=== PATIENT | male | born 1940 | race Caucasian/White ===

== ENCOUNTER 2016-12-08 17:15 | Emergency (ER) | payer OTHER, BC ==
[~2016-12-08] VITALS: Ht 180.3 cm; Wt 81.7 kg
--- NOTE | ~2016-12-08 | EKG ---
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
[~2016-12-08 17:15] MED LIST: AGGRENOX 25 MG1 EACH PO; ARICEPT10 M1 PO; ASPIRIN81 M2 PO; B-121000 MCG PO; B12INJ PO; BACLOFEN20 MG; BACTROBAN NASAL1 GM NS; CLARITIN10 MG PO; COLACE100 MG; COLACE100 MG PO; DESYREL100 MG; DESYREL300 MG PO; DIPYRIDAMOLE PO; EXCEDRIN CAPLE1 EACH PO; FLEXERIL PO; FLONASE 0.05%50 MCG NASAL; FLONASE 0.05%50 MCG NS; GEMFIBROZIL 60600 MG PO; LEVAQUIN 500 M500 M2 PO; LEVOTHYROXIN0.025 MG PO; MECLIZINE 25 MG25 M1; MIRALAX255 GM PO; MOBIC15 MG PO; MORPHINE; MOTION RELIEF25 MG PO; MS CONTIN15 MG; MS CONTIN60 MG PO; MUCINEX600 MG PO; NORCO 5-325 TA1 EACH PO; OMEPRAZOLE; OMEPRAZOLE20 M2 PO; OSELB75 PO; OXYCODONE HCL 55 MG PO; PERCOCET; PERCOCET 5-3251 EACH; PHENERGAN 25 MG25 M1 PO; PREDNISONE 20 M20 MG PO; REMERON30 MG PO; SENNA PO; SIMVASTATIN40 MG PO; SIMVASTATIN80 MG PO; TAMSULOSIN HCL0.4 MG PO; TRAMADOL 50 MG50 MG PO; TRAZODONE PO; ULTRAM 50MG TAB50 MG PO; VENLAFAXINE HC225 MG PO; XARELTO10 MG; ZOCOR; ZOFRAN4 MG PO
[2016-12-08] MEDS ORDERED: FLONASE 0.05%50 MCG NASAL (17:57)
[2016-12-08] MEDS ORDERED: CETIRIZINE HCL5 MG PO (17:57)
[2016-12-08 18:05] LABS: ABSOLUTE NEUTROPHILS 2.6 thou/uL (1.4-8.2); BASOPHILS 0.7 % (0.0-2.0); EOSINOPHILS 0.6 % (0.0-3.0); HEMATOCRIT 42.3 % (42.0-52.0); HEMOGLOBIN 14.8 gm/dL (14.0-18.0); MCH 33.2 pg (26.0-34.0); MCHC 34.9 g/dL (28.0-37.0); MCV 95.2 fL (80.0-100.0); PLATELET COUNT 113 thou/uL (150-400); POLYS 65.7 % (36.0-66.0); RBC 4.44 mil/uL (4.50-6.00); RDW 12.5 % (10.5-14.5)
[2016-12-08 18:07] LABS: MANUAL DIFF NO
[2016-12-08 18:10] LABS: CALCIUM 9.2 mg/dL (8.5-10.1); CREATININE 1.1 mg/dL (0.7-1.3); POTASSIUM 3.7 mmol/L (3.5-5.1)
[2016-12-08 18:15] LABS: ALBUMIN 3.7 g/dL (3.4-5.0); TOTAL BILIRUBIN 0.4 mg/dL (<0.1-1.0); TOTAL PROTEIN 7.2 g/dL (6.4-8.2)
[2016-12-08 19:12] LABS: URINE BILIRUBIN NEGATIVE (Negative); URINE BLOOD NEGATIVE (Negative); URINE COLOR YELLOW; URINE GLUCOSE-RANDOM* NEGATIVE (Negative); URINE KETONES NEGATIVE (Negative); URINE LEUKOCYTES-REFLEX NEGATIVE (Negative); URINE PROTEIN (DIPSTICK) NEGATIVE (Negative)
[2016-12-08] MEDS ORDERED: ZANTAC 150MG T150 MG PO (19:32)
[2016-12-08] MEDS ORDERED: REGLAN 10 MG TA10 MG PO (19:35)
== END 2016-12-08 19:51 | disposition home or self-care (01) ==
LOC: ER 17:15
PROVIDERS: Physician Assistant
DX: S00.93XA Contusion of unspecified part of head, initial encounter (principal); K21.9 Gastro-esophageal reflux disease without esophagitis; I25.2 Old myocardial infarction; J32.9 Chronic sinusitis, unspecified; M19.90 Unspecified osteoarthritis, unspecified site; F32.9 Major depressive disorder, single episode, unspecified; F41.9 Anxiety disorder, unspecified; G47.30 Sleep apnea, unspecified; N40.0 Benign prostatic hyperplasia without lower urinary tract symptoms; M79.7 Fibromyalgia; G25.81 Restless legs syndrome; E03.9 Hypothyroidism, unspecified; J44.9 Chronic obstructive pulmonary disease, unspecified; K64.9 Unspecified hemorrhoids; E78.00 Pure hypercholesterolemia, unspecified; F03.90 Unspecified dementia, unspecified severity, without behavioral disturbance, psychotic disturbance, mood disturbance, and anxiety; Z90.49 Acquired absence of other specified parts of digestive tract; Z86.73 Personal history of transient ischemic attack (TIA), and cerebral infarction without residual deficits; W18.30XA Fall on same level, unspecified, initial encounter; Y93.89 Activity, other specified; Y92.89 Other specified places as the place of occurrence of the external cause; Y99.8 Other external cause status

== ENCOUNTER → 2017-01-02 | Outpatient (CLI) | payer OTHER, BC ==
[~2017-01-02] MED LIST changes: +CETIRIZINE HCL5 MG PO; +REGLAN 10 MG TA10 MG PO; +ZANTAC 150MG T150 MG PO
--- NOTE | ~2017-01-02 | EEG ---
[facility] [place] [address] ELECTROENCEPHALOGRAM Name: MARLENE RICHARD Room #: REG [facility] M..#: [id number] Admission: 01/02/17 Attend Phys: Jose Francisco Mcintosh MD Discharge: Date of : 40 Report #: [id number] THIS REPORT FOR: //name// CC: Jose Francisco Mcintosh DATE OF SERVICE: 01/02/2017 This patient is being evaluated for headaches, syncope and dizziness. This patient's EEG was done by placing the electrodes by standard 10-20 system of electrode placement. Both referential and sequential montages were used for recording. Background activity in this patient's EEG is about 9 Hz and 30 microvolts. It is intermixed with theta range slowing to some extent. Large portion of this EEG was obtained when the patient was asleep. That is associated with bilateral slowing and sleep spindle and vertex sharp waves. Photic stimulation is unremarkable. Throughout the record, no active epileptiform activity was noticed. IMPRESSION: This patient's EEG is intermixed with theta range slowing on both sides. That is a nonspecific abnormality, which can occur with encephalopathy, effect of psychotropic medication, dementia, etc. Clinical correlation is recommended. By: 0725 0754 Mart Santizo MD /nt
== END ==
LOC: NEURO 07:47
DX: S06.0X9A Concussion with loss of consciousness of unspecified duration, initial encounter (principal); M47.894 Other spondylosis, thoracic region; R55 Syncope and collapse; W19.XXXA Unspecified fall, initial encounter; Y93.89 Activity, other specified; Y92.89 Other specified places as the place of occurrence of the external cause; Y99.8 Other external cause status

== ENCOUNTER → 2017-01-22 | Outpatient (CLI) | payer OTHER, BC ==
[~2017-01-22] VITALS: Ht 180.3 cm; Wt 84.4 kg
[~2017-01-22] MED LIST changes: -MS CONTIN15 MG; +MS CONTIN15 MG PO; -PERCOCET; +PERCOCET PO
--- NOTE | ~2017-01-22 | S ---
[facility] [place] [address] SURGICAL PATH RPT PROCEDURE Name: PAYAM RICHARD Room #: REG CLCharla SantiagoRemediosIta.#: [id number] Admission: 01/22/17 Date of : 40 Discharge: Report #: [id number] Path Case #: [id number] PATHOLOGY REPORT COLLECTION DATE: 01/22/2017 RECEIVED DATE: 01/22/2017 SUBMITTING PHYS: Dr. Ty Julio OTHER PHYS: SPECIMEN(S) RECEIVED: A.Duodenal bx B.Gastric bx * * * * * * * * * * * * FINAL DIAGNOSIS: A. Small bowel, duodenum, biopsy: - Unremarkable duodenal mucosa. B. Stomach, biopsy: - Reactive gastropathy. - No acute inflammation present. - An H. pylori immunostain is negative (Block B1; appropriately reactive control). PATHOLOGIST: Tavo Marie M.D. REPORT ELECTRONICALLY SIGNED BY: Tavo Marie M.D. DATE/TIME: 01/23/2017 11:10 * * * * * * * * * * * * GROSS PATHOLOGY: A. Received in formalin labeled "aPyam Landaverdesor, duodenal BX," are 3 segments of esquivel soft tissue measuring 1.2 x 0.4 x 0.3 cm in aggregate dimensions and ranging from 0.4 to 0.4 cm in maximum dimension. The specimen is submitted entirely in cassette A1. B. Received in formalin labeled "Payam Halsor, gastric BX," are 4 segments of esquivel soft tissue measuring 2.0 x 0.2 x 0.3 cm in aggregate dimensions and ranging from 0.3 to 0.7 cm in maximum dimension. The specimen is submitted entirely in cassette B1. (TSD; 01/22/2017) CLINICAL HISTORY: Abdominal pain INITIAL CPT CODE(S): A; 34032 B; 68889, [address] [facility] [address] [place] [address] SURGICAL PATH RPT PROCEDURE Name: PAYAM RICHARD Room #: REG CLI RemediosRemedios#: [id number] Admission: 01/22/17 Date of : 40 Discharge: Report #: [id number] Path Case #: [id number] Professional services performed by [facility] at [address] , [place] [address] Technical services performed by [facility] at [address] [place] [address], [place] [address]. [facility] [address] [place] [address] PHONE: [phone] DIRECTOR: Jesús Ruelas M.D. * * * END OF REPORT * * *
--- NOTE | ~2017-01-22 | P ---
[facility] [place] [address] PROCEDURE REPORT Name: MARLENE RICHARD Room #: REG [facility] Ayesha#: [id number] Admission: 01/22/17 Attend Phys: Ty Mclain Discharge: Date of : 40 Report #: [id number] THIS REPORT FOR: //name// CC: Ty Mcintosh DATE OF SERVICE: 01/22/2017 PROCEDURE PERFORMED: Upper endoscopy with biopsies and esophageal dilation. HISTORY OF PRESENT ILLNESS: The patient is a 76-year-old male who complains of abdominal pain, it is primarily periumbilical and midepigastric. He does take aspirin and Mobic on a regular basis as well as omeprazole. He has had weight loss. He described the pain is intermittent in nature. He reports his bowel movements have been normal. He does report some dysphagia. He had an upper endoscopy by myself in 2011, which was essentially negative. Plan is for EGD. DESCRIPTION OF PROCEDURE: The risks and benefits of the procedure were explained to the patient, those risks including but not limited to bleeding, perforation, the risk of sedation. He understood these risks and gave informed consent. Sedation was given using propofol per anesthesia. Next, using a standard VayaFelizn upper endoscope, the scope was placed in the patient's mouth and advanced under direct vision through the esophagus, stomach and into the second portion of the duodenum. The esophagus was normal throughout. The GE junction was normal. No evidence of stricture or esophagitis. There was a diffuse uvvg-ku-sfizaovu gastritis noted throughout the stomach. No evidence of ulcers, no bleeding. Biopsies were obtained to rule out H. pylori. The pylorus was normal and patent. The duodenal bulb, first and second portion were all normal. Biopsies were obtained to rule out the possibility of celiac sprue. Scope was then brought back up into the patient's stomach and a Savary guidewire was inserted through the scope as the scope was then withdrawn. Next, a 51-Ukrainian Savary dilation of the esophagus was performed without difficulty. The wire and dilator were removed. The scope was reintroduced into the patient's stomach. There was no evidence of mucosal tear after dilation. Scope was then withdrawn and the procedure terminated. The patient tolerated the procedure well. IMPRESSION: 1. Gastritis. 2. Otherwise, normal upper endoscopy. RECOMMENDATIONS: 1. Await biopsy results. 2. Continue PPI therapy. 3. Observe the patient status post dilation. [address] [address] PROCEDURE REPORT Name: MARLENE RICHARD [facility] #: [facility] [id number] Admission: 01/22/17 Attend Phys: Ty Mclain Discharge: Date of : 40 Report #: [id number] 4. If biopsies are negative, would consider CT scan of the abdomen and pelvis. Thank you for allowing me to participate in his care. <ELECTRONICALLY SIGNED> By: Ty Julio MD 01/23/17 0906 0917 1009 Ty Julio MD /nt
== END | disposition home or self-care (01) ==
LOC: GI 07:10
DX: K31.9 Disease of stomach and duodenum, unspecified (principal); R13.19 Other dysphagia; K21.9 Gastro-esophageal reflux disease without esophagitis; I25.2 Old myocardial infarction; M79.7 Fibromyalgia; J44.9 Chronic obstructive pulmonary disease, unspecified; J32.8 Other chronic sinusitis; G47.33 Obstructive sleep apnea (adult) (pediatric); E03.9 Hypothyroidism, unspecified; N40.0 Benign prostatic hyperplasia without lower urinary tract symptoms; E78.5 Hyperlipidemia, unspecified; M19.90 Unspecified osteoarthritis, unspecified site; F32.89 Other specified depressive episodes; F41.8 Other specified anxiety disorders; Z79.82 Long term (current) use of aspirin; Z87.891 Personal history of nicotine dependence; Z86.73 Personal history of transient ischemic attack (TIA), and cerebral infarction without residual deficits; Z96.652 Presence of left artificial knee joint; Z87.19 Personal history of other diseases of the digestive system; Z79.899 Other long term (current) drug therapy; Z90.49 Acquired absence of other specified parts of digestive tract; Z98.890 Other specified postprocedural states
CPT/HCPCS: 62110; 62900

== ENCOUNTER → 2017-02-21 | Outpatient (CLI) | payer OTHER, BC | LOC: CAT 07:33 | PROVIDERS: Specialist | DX: N32.89 Other specified disorders of bladder (principal); R10.33 Periumbilical pain; R13.10 Dysphagia, unspecified ==

== ENCOUNTER 2018-07-10 10:19 | Inpatient (IN) | payer OTHER, BC ==
[~2018-07-10] VITALS: Ht 180.3 cm; Wt 86.2 kg
[2018-07-10] VITALS (9 sets, daily range): BP systolic 129–153; BP diastolic 54–82
[2018-07-10 10:54] LABS: ABSOLUTE NEUTROPHILS 1.3 thou/uL (1.4-8.2); BASOPHILS 0.9 % (0.0-2.0); EOSINOPHILS 5.7 % (0.0-3.0); HEMATOCRIT 37.1 % (42.0-52.0); HEMOGLOBIN 12.7 gm/dL (14.0-18.0); LYMPHOCYTES 40.9 % (24.0-44.0); MCH 32.6 pg (26.0-34.0); MCHC 34.2 g/dL (28.0-37.0); MCV 95.3 fL (80.0-100.0); MONOCYTES 8.7 % (1.0-8.0); POLYS 43.8 % (36.0-66.0); RBC 3.89 mil/uL (4.50-6.00); RDW 13.1 % (10.5-14.5); WBC 3.1 thou/uL (4.0-11.0)
[2018-07-10 11:04] LABS: ANION GAP 7 mmol/L (7-16); BUN 17 mg/dL (7-18); CALCIUM 8.5 mg/dL (8.5-10.1); CHLORIDE 104 mmol/L (98-107); CO2 30 mmol/L (21-32); CREATININE 1.1 mg/dL (0.7-1.3); GLUCOSE 107 mg/dL (74-106); POTASSIUM 3.5 mmol/L (3.5-5.1); SODIUM 141 mmol/L (136-145)
[2018-07-10 11:12] LABS: ALBUMIN 3.5 g/dL (3.4-5.0); SALICYLATE < 2.8 mg/dL (2.8-20.0); SGOT 12 U/L (15-37); SGPT 24 U/L (30-65); TOTAL BILIRUBIN 0.4 mg/dL (<0.1-1.0); TOTAL PROTEIN 6.5 g/dL (6.4-8.2); TROPONIN-I <0.06 ng/mL (<0.06)
[2018-07-10 11:34] LABS: PLATELET COUNT 80 thou/uL (150-400); PLATELET ESTIMATE SLIGHTLY DECREASED
[2018-07-10 15:07] LABS: URINE BILIRUBIN NEGATIVE (Negative); URINE BLOOD NEGATIVE (Negative); URINE CLARITY CLEAR; URINE COLOR YELLOW; URINE GLUCOSE-RANDOM* NEGATIVE (Negative); URINE KETONES NEGATIVE (Negative); URINE LEUKOCYTES-REFLEX NEGATIVE (Negative); URINE NITRITE-REFLEX NEGATIVE (Negative); URINE PROTEIN (DIPSTICK) NEGATIVE (Negative); URINE UROBILINOGEN 0.2 E.U./dl (0.2-1.0)
[2018-07-10] MEDS ORDERED: POTASSIUM20 PO (15:47)
[2018-07-10] MEDS ORDERED: CYMBALTA60 MG PO (15:47)
[2018-07-10] MEDS ORDERED: TOPAMAX50 MG PO (15:47)
[2018-07-10] MEDS ORDERED: PROTONIX40 M1 PO (15:48)
[2018-07-10] MEDS ORDERED: LIPITOR 20 MG T20 M1 PO (15:48)
[2018-07-10] MEDS ORDERED: ABILIFY 5 MG TAB5 MG PO (15:49)
[2018-07-10] MEDS ORDERED: ONDANSETRON HCL4 M2 PO (16:02)
[2018-07-10 16:04] LABS: TSH 2.862 uIU/mL (0.358-3.740)
[2018-07-10] MEDS ORDERED: LASIX 20 MG TAB20 MG PO (16:04)
--- NOTE | 2018-07-10 16:34 | NUR ---
ADMITTED FROM ER PER CART TO ICU #239 WITH DIAGNOSIS: UNINTENTIONAL OPIOID OVERDOSE, RESP FAILURE WITH HYPOXIA. ALERT, ORIENTED X3, TALKING, WATCHING TV, MOVES ALL EXTREMITIES TO COMMAND, CALM, COOPERATIVE, SR, RESP EVEN AND UNLABORED, 2L/NC, NARCAN INFUSING 0.13 MG/HR. PT UNACCOMPANIED BY FAMILY ON ARRIVAL.
--- NOTE | 2018-07-10 17:19 | EKG ---
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1940 Requested By: Mala Waterman Order Number: [id number] MD: Dionte Suazo Measurements Intervals Gustine Rate: 58 P: 46 HI: 176 QRS: -67 QRSD: 161 T: 4 QT: 472 QTc: 464 Interpretive Statements Sinus bradycardia RBBB and LAFB Compared to ECG 12/08/2016 17:34:44 No significant changes Electronically Signed On 07-10-2018 17:18:55 CDT by Dionte Suazo [email or web address] ��������������������������������������������� <ELECTRONICALLY SIGNED> ���������������������������������������� By: Dionte Suazo MD, [facility] ��������������������������������������������� 07/10/18 1718 1038 1038 Dionte Suazo MD, FACC /EPI
[2018-07-11] VITALS (14 sets, daily range): BP systolic 122–142; BP diastolic 63–105
[2018-07-11 05:17] LABS: HEMATOCRIT 40.2 % (42.0-52.0); HEMOGLOBIN 13.8 gm/dL (14.0-18.0); MCH 32.5 pg (26.0-34.0); MCHC 34.2 g/dL (28.0-37.0); MCV 94.9 fL (80.0-100.0); RBC 4.23 mil/uL (4.50-6.00); RDW 13.1 % (10.5-14.5); WBC 5.8 thou/uL (4.0-11.0)
[2018-07-11 05:24] LABS: CALCIUM 8.6 mg/dL (8.5-10.1); MAGNESIUM 2.1 mg/dL (1.8-2.4); POTASSIUM 3.4 mmol/L (3.5-5.1)
--- NOTE | 2018-07-11 11:24 | NUR ---
PT TO MRI /C TRANSPORT AND TICKET TO RIDE
[2018-07-11] MEDS ORDERED: ACETAMINOPHEN325 M1 PO (14:56)
[2018-07-11] MEDS ORDERED: ARICEPT10 M1 PO (14:56)
[2018-07-11] MEDS ORDERED: LASIX 20 MG TAB20 MG PO (14:56)
--- NOTE | 2018-07-11 16:16 | NUR ---
Met with patient, , and dtr at bedside. Dtr reports parents and her recently have moved together. [employer] independent with adls. Patient to dc home today with HH orders. Dtr reports have used [facility] in past. Requested [facility] review. She reports new address given in ER which is not on face sheet. [place] [address] [facility] [place] [address] Mcintosh. casemgt following.
--- NOTE | 2018-07-11 16:39 | NUR ---
PT DC'D TO CARE OF DAUGHTER AFTER DISCHARGE INSTRUCTIONS GIVEN AND DAUGHTER VERBALIZED UNDERSTANDING - LEFT IN WC ESCORTED BY [facility] TRANSPORT
--- NOTE | 2018-07-15 09:27 | NUR ---
[facility] ACCEPTING OF PATIENT FOR HH CARE.
== END 2018-07-11 16:36 | disposition home health service (06) | DRG 917 ==
LOC: ER 10:19 → ICU 12:37 → EROBS 12:37 → ICU 16:13
PROVIDERS: Nurse Practitioner Family; ADMIT Internal Medicine
DX: T40.2X1A Poisoning by other opioids, accidental (unintentional), initial encounter (principal); J96.01 Acute respiratory failure with hypoxia; G92 Toxic encephalopathy; M19.90 Unspecified osteoarthritis, unspecified site; F32.9 Major depressive disorder, single episode, unspecified; F41.9 Anxiety disorder, unspecified; N40.0 Benign prostatic hyperplasia without lower urinary tract symptoms; G25.81 Restless legs syndrome; E03.9 Hypothyroidism, unspecified; E78.00 Pure hypercholesterolemia, unspecified; F03.90 Unspecified dementia, unspecified severity, without behavioral disturbance, psychotic disturbance, mood disturbance, and anxiety; Z96.652 Presence of left artificial knee joint; K21.9 Gastro-esophageal reflux disease without esophagitis; R41.0 Disorientation, unspecified; G89.4 Chronic pain syndrome; M79.7 Fibromyalgia; I25.10 Atherosclerotic heart disease of native coronary artery without angina pectoris; E78.5 Hyperlipidemia, unspecified; Y92.89 Other specified places as the place of occurrence of the external cause; I25.2 Old myocardial infarction; Z90.49 Acquired absence of other specified parts of digestive tract; Z87.01 Personal history of pneumonia (recurrent); Z87.891 Personal history of nicotine dependence
CPT/HCPCS: 10078

== ENCOUNTER → 2019-02-10 | Outpatient (CLI) | payer OTHER, BC ==
[~2019-02-10] VITALS: Ht 180.3 cm; Wt 86.2 kg
[~2019-02-10] MED LIST changes: +ABILIFY 5 MG TAB5 MG PO; +ACETAMINOPHEN325 M1 PO; +ACETAMINOPHEN650 M5 PO; +CYMBALTA60 MG PO; +FUROSEMIDE 20 M20 MG PO; +LASIX 20 MG TAB20 MG PO; -LEVOTHYROXIN0.025 MG PO; +LIPITOR 20 MG T20 M1 PO; +MORPHINE SULFAT15 MG PO; +NORFLEX100 MG PO; +ONDANSETRON HCL4 M2 PO; +PERCOCET 10-321 EAC1 PO; +POTASSIUM20 PO; +PROTONIX40 M1 PO; +SYNTHROID25 MC1 PO; +TOPAMAX50 MG PO
[2019-02-10 10:22] LABS: HEMATOCRIT 40.7 % (42.0-52.0); HEMOGLOBIN 13.6 gm/dL (14.0-18.0); MCHC 33.4 g/dL (28.0-37.0); MCV 98.7 fL (80.0-100.0); RBC 4.12 mil/uL (4.50-6.00); RDW 13.3 % (10.5-14.5); WBC 4.1 thou/uL (4.0-11.0)
[2019-02-10 10:24] LABS: URINE BILIRUBIN NEGATIVE (Negative); URINE BLOOD NEGATIVE (Negative); URINE CLARITY CLEAR; URINE COLOR YELLOW; URINE GLUCOSE-RANDOM* NEGATIVE (Negative); URINE KETONES NEGATIVE (Negative); URINE LEUKOCYTES-REFLEX NEGATIVE (Negative); URINE NITRITE-REFLEX NEGATIVE (Negative); URINE PROTEIN (DIPSTICK) NEGATIVE (Negative); URINE SPECIFIC GRAVITY <= 1.005 (1.005-1.035); URINE UROBILINOGEN 0.2 E.U./dl (0.2-1.0)
[2019-02-10 10:30] LABS: PROTIME 10.6 Seconds (9.3-11.4)
[2019-02-10 10:36] LABS: CALCIUM 9.4 mg/dL (8.5-10.1); POTASSIUM 4.2 mmol/L (3.5-5.1)
== END ==
LOC: PAC 08:52 → TBA 02-21 08:52 → PRE 02-21 08:59 → EDSTATUS 03-12 10:06
PROVIDERS: Orthopaedic Surgery Sports Medicine
DX: S43.421A Sprain of right rotator cuff capsule, initial encounter (principal); M75.21 Bicipital tendinitis, right shoulder; M25.511 Pain in right shoulder; M19.011 Primary osteoarthritis, right shoulder; M75.51 Bursitis of right shoulder; X58.XXXA Exposure to other specified factors, initial encounter; Y93.89 Activity, other specified; Y92.89 Other specified places as the place of occurrence of the external cause; Y99.8 Other external cause status

== ENCOUNTER 2019-05-21 06:24 | Inpatient (IN) | payer OTHER, BC ==
[2019-05-12 08:52] LABS: HEMATOCRIT 43.2 % (42.0-52.0); HEMOGLOBIN 14.6 gm/dL (14.0-18.0); MCH 32.8 pg (26.0-34.0); MCHC 33.7 g/dL (28.0-37.0); MCV 97.2 fL (80.0-100.0); RBC 4.44 mil/uL (4.50-6.00); WBC 5.2 thou/uL (4.0-11.0)
[2019-05-12 08:57] LABS: URINE BILIRUBIN NEGATIVE (Negative); URINE BLOOD NEGATIVE (Negative); URINE CLARITY CLEAR; URINE COLOR YELLOW; URINE GLUCOSE-RANDOM* NEGATIVE (Negative); URINE KETONES NEGATIVE (Negative); URINE LEUKOCYTES-REFLEX NEGATIVE (Negative); URINE NITRITE-REFLEX NEGATIVE (Negative); URINE PROTEIN (DIPSTICK) NEGATIVE (Negative); URINE UROBILINOGEN 0.2 E.U./dl (0.2-1.0)
[2019-05-12 09:03] LABS: CALCIUM 9.2 mg/dL (8.5-10.1); CREATININE 1.2 mg/dL (0.7-1.3); POTASSIUM 4.1 mmol/L (3.5-5.1); PROTIME 10.4 Seconds (9.3-11.4)
[~2019-05-21] VITALS: Ht 180.3 cm; Wt 83.9 kg
--- NOTE | ~2019-05-21 | O ---
[facility] [place] [address] OPERATIVE REPORT Name: MARLENE RICHARD Florencia Room #: 150-1 ADM IN M.R.#: [id number] Admission: 05/21/19 Attend Phys: Darinel Vargas Discharge: Date of : 40 Report #: [id number] THIS REPORT FOR: //name// CC: Jose Francisco Eldridge DATE OF SERVICE: 05/21/2019 PREOPERATIVE DIAGNOSES: Pain, partial thickness rotator cuff tear, severe glenohumeral joint osteoarthritis, superior labral tear, biceps tendinitis. POSTOPERATIVE DIAGNOSES: Right shoulder pain, advanced glenohumeral joint osteoarthritis, large rotator cuff tear, long head biceps tendon tear/tendinopathy, complex labral tear. PROCEDURE PERFORMED: Right shoulder reverse total shoulder arthroplasty with open biceps tenodesis. SURGEON: Darinel Eldridge MD OR ASSISTANT: Halima Quiroz PA-C. ANESTHESIA: General with an ultrasound-guided preoperative interscalene block. FLUIDS: 750 mL crystalloid. ESTIMATED BLOOD LOSS: Approximately 75 mL. IMPLANTS UTILIZED: DePuy Delta Xtend size 14 stem with a size 1, GONZALEZ coated epiphysis with a +6 polyethylene cup and a 42 mm +2 centered glenoid with standard Metaglene. DESCRIPTION OF PROCEDURE: After proper identification of the patient and operative site in preoperative holding area, the operative site was signed by myself. Prophylactic antibiotics given. The patient elected to receive an ultrasound-guided block after reviewing the risks, benefits, alternatives and potential complications with Anesthesia. After a satisfactory block, the patient was brought back to the operative suite after induction of satisfactory general anesthesia, the right shoulder was examined. It was stable throughout an arc of motion comparable to the preoperative assessment. The patient was carefully positioned in the beach chair with head of bed elevated approximately 40 degrees. Right shoulder was sterilely prepped and draped in the usual manner. Final skin draping was with Ioban. A PickPark limb positioning system was utilized throughout the entire procedure to aid in patient limb positioning, visualization and retraction of soft tissues, instrument passage, closure and sling and dressing application. Anterior deltopectoral approach was [address] [address] OPERATIVE REPORT Name: MARLENE RICHARD Room #: 150-1 ADM IN M.R.#: [id number] Admission: 05/21/19 Attend Phys: Darinel Vargas Discharge: Date of : 40 Report #: [id number] planned. Skin was incised sharply. Full thickness skin flaps were developed. Cephalic vein was identified and retracted laterally. Subdeltoid adhesions were carefully released bluntly. A tenosynovitis about the biceps tendon was noted. Partial thickness tearing and large spurs were noted about the bicipital groove. Biceps was tenodesed to the undersurface of the pectoralis major using #2 FiberWire. Upper border tear of the subscapularis was noted. From a more inferior portion was intact and this was released off the lesser tuberosity with a tendon grasping stitch placed on. The subscapularis was then released. There was evidence of rotator cuff tear involving the supraspinatus extending back towards the infraspinatus where the infraspinatus more posteriorly as well as teres minor was otherwise intact. Advanced degenerative changes were noted of the glenohumeral joint. The patient's calf tear was large enough that I believe he would be better served by reverse total shoulder arthroplasty than a standard total shoulder. At this point, peripheral osteophytes were removed about the humeral head. An oscillating saw was used to create a flat spot on the superior head and a guidepin was advanced into the femur. Hand reaming of the humeral canal up to a size 14 stem was performed and then a cutting jig was secured to the humerus using half pins. This was done while referencing the patient's retroversion, which measured approximately 25 degrees. Humeral head osteotomy was planned at 155 degrees. After this was performed, any peripheral osteophytes were removed as well as a capsular release off the inferior humerus. The more posterior infraspinatus and teres minor were still intact. Protection plate was applied. Attention was divided to the glenoid. The anterior capsular structures and labrum were released circumferentially as well as remaining biceps tendon. Glenoid arthrosis was also present without any bone loss. Metaglene guide pin was then placed in the more inferior aspect of the glenoid and its position and trajectory was verified. Glenoid face was reamed and then the Castro reamer was utilized. Any remaining soft tissue was removed by hand and a step drill was then utilized and the bone graft was carefully removed and this was contained. Standard metaglene was chosen. It was impacted into position and had excellent fit. This was done after the area had been irrigated with antibiotic irrigant. Next, locking screws were placed in the superior and inferior holes measuring 30 mm superior, 42 mm inferior and then 2 and 18 mm screws were placed in the anterior and posterior directions. These were sequentially tightened. Locking screws were tightened. An acetabular reamer was used to ream the proximal humerus. A 42 mm +2 glenosphere was reduced on to the metaglene. Guidewire was inserted, its screw was rotated counterclockwise until a click was noted and it was fully seated. It was then tightened, impacted and tightened three additional times until it was fully seated. Next, trial stem and epiphysis were placed as well as trial polyethylene. The +6 poly provided the best overall fit and stability. Trial implants were removed. Drill holes were placed in the anterior cortex of the humerus when #2 FiberWires were passed and the area was irrigated with antibiotic irrigant. Stem was assembled on the back table, impacted into position. The inferior 2 sutures were then placed around the stem and after the joint was irrigated with normal saline, again the +6 polyethylene was chosen, provided the best overall fit and [address] [address] OPERATIVE REPORT Name: MARYMARLENE CABELLO Room #: 150-1 ADM IN M.R.#: [id number] Admission: 05/21/19 Attend Phys: Darinel Vargas Discharge: Date of : 40 Report #: [id number] stability of the joint. No propensity to dislocate was seen and the subscapularis was repaired with modified Louis-Matthew technique with three #2 FiberWires for the portion that was left. Joint was thoroughly irrigated again, dried; 1 gram vancomycin powder was utilized, half at deep, half at more superficial. Deltopectoral interval was closed followed by the subcutaneous tissues with 2-0 Vicryl and then a running 4-0 Monocryl. This was sealed with Dermabond. Sterile dressing was applied as well as a sling and abduction pillow for 4 weeks postoperatively. By: 1525 1549 Darinel Eldridge MD /ana
[~2019-05-21 06:24] MED LIST changes: +IBUPROFEN 800800 M1 PO; +MAGNESIUM250 M1 PO; +PROMETHAZINE12.5 M1 PO; +VOLTAREN100 GM TOP
[2019-05-21 11:37] VITALS: BP 121/65
[2019-05-21 20:25] VITALS: BP 124/68
[2019-05-21 20:35] VITALS: BP 130/77
[2019-05-21 21:30] VITALS: BP 118/67
[2019-05-21 22:50] VITALS: BP 119/70
[2019-05-22] VITALS (9 sets, daily range): BP systolic 104–122; BP diastolic 53–68
[2019-05-22 06:07] LABS: HEMATOCRIT 34.8 % (42.0-52.0); HEMOGLOBIN 11.7 gm/dL (14.0-18.0)
[2019-05-22 06:18] LABS: POTASSIUM 3.8 mmol/L (3.5-5.1)
== END 2019-05-22 13:29 | disposition home health service (06) | DRG 483 ==
LOC: PRE 06:24 → TBA 09:45 → 4S 09:45 → PRE 12:56 → 4S 17:14 → ENTRNSPT 05-22 13:11 → EDTRNSPTSTS 05-22 13:14 → 4S 05-22 13:29
PROVIDERS: Physician Assistant Surgical; ADMIT Orthopaedic Surgery Sports Medicine
PROC: 0LS30ZZ Reposition Right Upper Arm Tendon, Open Approach (ICD-10-PCS; principal; 2019-05-21)
PROC: 0RRJ00Z Replacement of Right Shoulder Joint with Reverse Ball and Socket Synthetic Substitute, Open Approach (ICD-10-PCS; principal; 2019-05-21)
DX: M19.011 Primary osteoarthritis, right shoulder (principal); M79.89 Other specified soft tissue disorders; R19.7 Diarrhea, unspecified; M75.21 Bicipital tendinitis, right shoulder; S43.421A Sprain of right rotator cuff capsule, initial encounter; M75.51 Bursitis of right shoulder; R35.0 Frequency of micturition; M54.9 Dorsalgia, unspecified; F41.9 Anxiety disorder, unspecified; F32.9 Major depressive disorder, single episode, unspecified; J45.909 Unspecified asthma, uncomplicated; G89.29 Other chronic pain; X58.XXXA Exposure to other specified factors, initial encounter; E78.00 Pure hypercholesterolemia, unspecified; S43.401A Unspecified sprain of right shoulder joint, initial encounter; G43.909 Migraine, unspecified, not intractable, without status migrainosus; Z87.11 Personal history of peptic ulcer disease; Z86.73 Personal history of transient ischemic attack (TIA), and cerebral infarction without residual deficits; Z79.82 Long term (current) use of aspirin; Z79.891 Long term (current) use of opiate analgesic; Z79.899 Other long term (current) drug therapy; Y93.89 Activity, other specified; Y92.89 Other specified places as the place of occurrence of the external cause; Y99.8 Other external cause status
CPT/HCPCS: 10102; 50010; 50101; 50172; 50386; 50417; 50697; 50733; 50935; 51320; 52001; 52138; 53000; 53078; 54118; 55430; 56524; 56525; 56526; 56530; 57095; 57103; 62110; 62900; 70005